=== PATIENT | female | born 1950 | race American Indian/Alaskan Native ===

== ENCOUNTER 2020-07-24 08:04 | Observation (INO) | payer MEDICARE, OTHER ==
[2020-07-24] MEDS ORDERED: SODIUM CHLORIDE 0.9% 500 ML 500 ML IV SCH (09:00)
[2020-07-24] MEDS ORDERED: ASPIRIN EC 325 MG TAB PO ONE (09:00)
[2020-07-24] MEDS ORDERED: fentaNYL 100 MCG/2 ML INJ ONE (09:02)
[2020-07-24] MEDS ORDERED: HEPARIN/NS 5000 UNIT/500ML 1,000 ML IR ONE (09:02)
[2020-07-24] MEDS ORDERED: MIDAZOLAM 2 MG/2 ML INJ ONE (09:02)
[2020-07-24] MEDS ORDERED: NITROGLYCERIN SYRINGE 3 ML ONE (09:03)
[2020-07-24] MEDS ORDERED: LIDOCAINE (2%) 20 MG/1 ML VIAL 20 ML MDV INFILTRATI ONE (09:03)
[2020-07-24] MEDS ORDERED: VERAPAMIL 5 MG/2 ML INJ ONE (09:03)
[2020-07-24 09:04] LABS: Basophils % (Auto) 0.5 % (0.0-1.8); Eosinophils # (Auto) 0.1 K/mm3 (0.0-0.4); Eosinophils % (Auto) 1.1 % (0.0-4.3); Hematocrit 42.1 % (30.3-42.9); Hemoglobin 14.2 gm/dl (10.1-14.3); Lymphocytes # (Auto) 1.6 K/mm3 (1.2-5.4); Lymphocytes % (Auto) 33.5 % (13.4-35.0); Mean Corpuscular HGB Conc 34 % (30-34); Mean Corpuscular Volume 88 fl (79-97); Monocytes # (Auto) 0.6 K/mm3 (0.0-0.8); Monocytes % (Auto) 12.1 % (0.0-7.3); Platelet Count 251 K/mm3 (140-440); Red Blood Count 4.81 M/mm3 (3.65-5.03); Red Cell Distribution Width 13.5 % (13.2-15.2)
[2020-07-24 09:12] LABS: INR 1.04 (0.87-1.13)
[2020-07-24 09:23] LABS: Blood Urea Nitrogen 10 mg/dL (7-17); Calcium 9.9 mg/dL (8.4-10.2); Hemolysis Index 2
[2020-07-24 09:29] LABS: BUN/Creatinine Ratio 17
[2020-07-24] MEDS ORDERED: HYDROCORTISONE SOD SUCC 100 MG/2 ML VIAL ONE (09:47)
[2020-07-24] MEDS ORDERED: diphenhydrAMINE 50 MG/ML VIAL ONE (09:47)
[2020-07-24] MEDS ORDERED: FAMOTIDINE 20 MG/2 ML INJ IV ONE (09:48)
[2020-07-24] MEDS: HEPARIN 10,000 UNITS/10 ML VIAL ONE ×2 (10:09→10:12)
[2020-07-24] MEDS ORDERED: ALUM-MAG HYDROXIDE-SIMETHICONE 200-200-20MG/5ML ORAL LIQD 30 ML ONE (10:34)
[2020-07-24] MEDS ORDERED: PRASUGREL 10 MG TAB PO ONE (10:34)
--- NOTE | 2020-07-24 10:52 | Cardiac Catherization Report ---
REFERRING PHYSICIAN: Dr. Fidel Franco. INDICATION FOR PROCEDURE: The patient is a very pleasant 69-year-old female with history of hypertension, dyspnea, hyperlipidemia, presents with significant chest tightness, high pretest likelihood, referred for left heart catheterization. Risks, benefits, and alternatives discussed at length prior to obtaining informed consent. PROCEDURE IN DETAIL: The patient was brought to the catheterization lab in a postabsorptive state, prepped and draped in sterile fashion. Rojas's test in right hand was normal. A 2 mL of 2% lidocaine used to anesthetize the right wrist. A standard 6-Italian hydrophilic sheath was used to cannulate the right radial artery via modified Seldinger technique. All exchanges performed to exchange a J-tip guidewire. A JL3.5 catheter was used to engage the left main. No dampening or ventricularization. Cineangiography performed in all projections. JR4 catheter was used to cross the aortic valve under fluoroscopic guidance. Left ventriculography performed in 30 GONZALEZ and 30 KITTITIAN projections via hand injections, catheter flushed. Manual pullback performed with continuous pressure monitoring. Catheter used to engage the right coronary. No dampening or ventricularization. Cineangiography performed in all projections. The patient developed ST changes and chest pain during injection of the left system. FINDINGS: Aortic pressure is 140/70, LV pressure is 140. LVEDP of 10 mmHg. Left ventriculography revealed normal systolic performance with estimated ejection fraction of 55-60%. No evidence of aortic stenosis. CORONARY ANATOMY: This is a right dominant system. Right coronary is a moderate-sized vessel, courses AV groove, distally bifurcates into posterior and posterolateral branches. No significant disease in the right coronary. The left main is without significant disease, bifurcates in left anterior descending and left circumflex. Left circumflex is a moderate-sized vessel, courses AV groove. There is a 99% stenosis in the mid left circumflex just after the takeoff of an OM trunk, small vessel. LAD is a moderate-sized vessel, courses anterior intergroove. There is a bridge in the mid segment, but no significant disease, MARSHALL [address] changes, chest pain, and 99% mid left circumflex, which appears to be ulcerated, this is the culprit lesion, decided to proceed with PCI. Heparin given, aspirin and Effient loaded. An EBU 3.5 guide used to engage the left main without difficulty. We used a [place] wire to cross the lesion without difficulty, predilated with a 2.0 x 8 balloon. We delivered a 2.25 x 12 [place] stent at 12 TRA for 30 seconds, a very small vessel. Angiographic result is excellent. I decided not to use intravascular ultrasound because of how small the vessel is. Excellent final angiographic result. No complications. A 0% residual stenosis, MARSHALL 3 flow. CONCLUSIONS: 1. Severe single vessel coronary artery disease with 99% mid left circumflex stenosis, which is culprit vessel with ST changes and chest pain. Successful PCI with placement of drug-eluting stent (Resolute 2.25 x 12 mm) with excellent final angiographic result. No complications are noted. The patient is chest pain free, clinically and hemodynamically stable. 2. Normal left ventricular systolic performance, estimated ejection fraction of 55-60%. 3. No evidence of aortic stenosis. 4. Normal LVEDP. The patient is clinically stable, Effient and aspirin therapy. Continue statin therapy. Standard radial care. Results of procedure explained to the patient and family. All questions and concerns were addressed . Anticipate a.m. discharge. JOB# [id number] SBM/NTS
[2020-07-24] MEDS: METOPROLOL TARTRATE 25 MG TAB PO SCH (23:06)
[2020-07-25 05:39] LABS: Basophils % (Auto) 0.4 % (0.0-1.8); Eosinophils # (Auto) 0.1 K/mm3 (0.0-0.4); Eosinophils % (Auto) 0.8 % (0.0-4.3); Hematocrit 39.2 % (30.3-42.9); Hemoglobin 12.7 gm/dl (10.1-14.3); Lymphocytes # (Auto) 3.4 K/mm3 (1.2-5.4); Lymphocytes % (Auto) 39.5 % (13.4-35.0); Mean Corpuscular HGB Conc 33 % (30-34); Mean Corpuscular Volume 88 fl (79-97); Monocytes # (Auto) 0.7 K/mm3 (0.0-0.8); Monocytes % (Auto) 8.3 % (0.0-7.3); Platelet Count 258 K/mm3 (140-440); Red Blood Count 4.45 M/mm3 (3.65-5.03); Red Cell Distribution Width 13.4 % (13.2-15.2)
[2020-07-25 05:58] LABS: Creatine Kinase MB 1.5 ng/mL (0.0-4.0)
[2020-07-25 06:03] LABS: Blood Urea Nitrogen 7 mg/dL (7-17); Calcium 9.3 mg/dL (8.4-10.2); Hemolysis Index 7
[2020-07-25 06:41] LABS: BUN/Creatinine Ratio 14
--- NOTE | 2020-07-25 09:06 | XRay Report ---
CHEST 1 VIEW 07/25/2020 7:58 AM INDICATION / CLINICAL INFORMATION: post pci. COMPARISON: None available. FINDINGS: SUPPORT DEVICES: None. HEART / MEDIASTINUM: No significant abnormality. LUNGS / PLEURA: No significant pulmonary or pleural abnormality. No pneumothorax. ADDITIONAL FINDINGS: No significant additional findings. IMPRESSION: 1. No acute abnormality of the chest. Signer Name: Gilberto Lamb MD Signed: 07/25/2020 9:01 AM Workstation Name: [id number]
[2020-07-25] MEDS: METOPROLOL TARTRATE 25 MG TAB PO SCH (09:07)
--- NOTE | 2020-07-25 09:40 | Short Stay Summary ---
Short Stay Documentation Date of service: 07/25/20 - History H&P: obtained from office - Allergies and Medications Current Medications: Allergies clarithromycin [From Biaxin] Allergy (Verified 07/24/20 09:04) Itching Penicillins Allergy (Verified 07/24/20 08:42) Rash codeine Adverse Reaction (Verified 07/24/20 08:51) Vomiting Home Medications Medication Instructions Recorded Confirmed Last Taken Type Aspirin EC [Halfprin EC] 81 mg PO DAILY 07/24/20 07/24/20 07/23/20 History 81 mg Dicyclomine [Bentyl] 10 mg PO DAILY 07/24/20 07/24/20 07/23/20 History 10 mg Oxybutynin [Ditropan] 10 mg PO DAILY 07/24/20 07/24/20 07/23/20 History 10 mg Pantoprazole [Protonix TAB] 40 mg PO DAILY 07/24/20 07/24/20 07/24/20 History 40 mg Simvastatin 10 mg PO HS 07/24/20 07/24/20 07/23/20 History 10 mg Vitamin D3 1,000 UNIT TAB 1 tab PO DAILY 07/24/20 07/24/20 07/23/20 History 1 amLODIPine 2.5 mg PO DAILY 07/24/20 07/24/20 07/23/20 History 2.5mg lisinopriL [Zestril TAB] 40 mg PO DAILY 07/24/20 07/24/20 07/23/20 History 40 mg Active Medications Aspirin (Aspirin 81 Mg Tab Chew) 81 mg PO QDAY [facility] Last Admin: 07/25/20 09:07 Dose: 81 mg Documented by: Atorvastatin Calcium (Atorvastatin 40 Mg Tab) 80 mg PO QHS [facility] Last Admin: 07/24/20 23:06 Dose: 80 mg Documented by: Lisinopril (Lisinopril 40 Mg Tab) 40 mg PO DAILY [facility] Last Admin: 07/25/20 09:08 Dose: 40 mg Documented by: Metoprolol Tartrate (Metoprolol Tartrate 25 Mg Tab) 12.5 mg PO BID [facility] Last Admin: 07/25/20 09:07 Dose: 12.5 mg Documented by: Neomycin/Polymyxin/Bacitracin (Neomy 3.5 Mg/Bacit 400 Units/Poly B 5000 Units/Gm Oint Packet) 1 applic TP ONCE [facility] Stop: 07/25/20 14:00 Prasugrel (Prasugrel 10 Mg Tab) 10 mg PO QDAY [facility] Last Admin: 07/25/20 09:07 Dose: 10 mg Documented by: - Physical exam General appearance: no acute distress Integumentary: no rash, no growths, no abnormal pigmentation HEENT: Atraumatic, PERRLA, EOMI Lungs: Clear to auscultation Heart: Regular rate, Normal S1, Normal S2 Gastrointestinal: normal, normoactive bowel sounds Extremities: no ischemia, pulses intact, pulses symmetrical Neurological: Normal gait, Normal speech, Strength at 5/5 X4 ext - Brief post op/procedure progress note Date of procedure: 07/25/20 Pre-op diagnosis: chest pain Post-op diagnosis: other (CAD) Procedure: LHC with PCI - see dictated cath report Anesthesia: local Estimated blood loss: none Condition: stable - Hospital course Hospital course: Pt presented for scheduled elective LHC. She subsequently underwent LHC with PCI - see dictated cath report. She was admitted for observation overnight and has remained clinically and hemodynamically stable throughout admission. She is medically stable for discharge today. - Disposition Condition at discharge: Good Disposition: [id number] TO HOME OR SELFCARE - Discharge Diagnoses (1) CAD (coronary artery disease) Status: Chronic (2) Stented coronary artery Status: Chronic (3) HTN (hypertension) Status: Chronic (4) Hyperlipidemia Status: Chronic (5) GERD (gastroesophageal reflux disease) Status: Chronic Short Stay Discharge Plan Activity: advance as tolerated Diet: low fat, low cholesterol, low salt Wound: open to air, keep clean and dry, per your surgeon's advice Follow up with: DEEPA MATTHEW [Other] - 7 Days HARPER MARTINEZ MD [Staff Physician] - 7 Days (08/07/2020 @ 3:15PM) Prescriptions: AtorvaSTATin [Lipitor] 80 mg PO QHS #90 tablet Prasugrel [Effient] 10 mg PO QDAY #90 tablet Metoprolol [Lopressor TAB] 12.5 mg PO BID #180 tablet
[2020-07-25] MEDS ORDERED: PANTOPRAZOLE 40 MG INJ IV SCH (10:00)
[2020-07-25] MEDS ORDERED: LISINOPRIL 40 MG TAB PO SCH (10:00)
[2020-07-25] MEDS ORDERED: PRASUGREL 10 MG TAB PO SCH (10:00)
[2020-07-25] MEDS ORDERED: NEOMY 3.5 MG/BACIT 400 UNITS/POLY B 5000 UNITS/GM OINT PACKET TP SCH (10:00)
[2020-07-25] MEDS ORDERED: ALUM-MAG HYDROXIDE-SIMETHICONE 200-200-20MG/5ML ORAL LIQD 30 ML PO PRN (10:00)
[2020-07-25] MEDS ORDERED: ASPIRIN 81 MG TAB CHEW PO SCH (10:00)
[2020-07-25 12:31] VITALS: BP 137/53
[2020-07-26] MEDS ORDERED: PANTOPRAZOLE 40 MG TAB PO SCH (07:30)
== END 2020-07-25 13:49 | disposition home or self-care (01) ==
LOC: CATHLABREC 08:04 → 4A 10:39
PROVIDERS: ADMIT Internal Medicine; ATTEND Internal Medicine
DX: I25.10 Atherosclerotic heart disease of native coronary artery without angina pectoris (principal); I10 Essential (primary) hypertension; K21.9 Gastro-esophageal reflux disease without esophagitis; R06.02 Shortness of breath; E78.5 Hyperlipidemia, unspecified; Z79.82 Long term (current) use of aspirin; Z87.891 Personal history of nicotine dependence; Z95.1 Presence of aortocoronary bypass graft
CPT/HCPCS: 36415; 71045; 80048; 82550; 82553; 84484; 85025; 85610; 85730; 93005; 93458; 96374; A6250; A9270; C1725; C1769; C1874; C1887; C1894; C9113; C9600; G0378; J1200; J1644; J1720; J2250; J3010; J7040; 92928; Q9967